=== PATIENT | female | born 1945 | race Native Hawaiian/Other Pacific Islander ===

== ENCOUNTER 2016-05-23 11:45 | Observation (INO) | payer OTHER, BC ==
[~2016-05-23] VITALS: Ht 157.5 cm; Wt 54.4 kg
[2016-05-23] VITALS (11 sets, daily range): BP systolic 104–162; BP diastolic 63–97; TEMP 98; Ht 157.5 cm; Wt 54.4 kg
[~2016-05-23 11:45] MED LIST: ATEN25TA21 PO; CHLO25CA11 PO; COZAAR100 MG PO; FLUTICASON50 MCG/ACT NAS; LORTAB 7.5-3251 TAB PO; ONDA4TAB3 PO; SEROQUEL25 MG PO
[2016-05-23 16:00] LABS: PLATELET COUNT 511 K/uL (152-353)
[2016-05-23 16:21] LABS: POTASSIUM 3.3 mmol/L (3.6-5.2); SODIUM 137 mmol/L (136-145)
--- NOTE | 2016-05-23 19:30 | NUR ---
PM ASSESSEMENT COMPLETED. PT GRABS STETHESCOPE WHEN NURSE ASCULTATING LUNGS AND BOWEL SOUNDS. PT STATES SHE IS NOT IN HOSPITAL. PT CONFUSED, COMBATIVE.
--- NOTE | 2016-05-23 21:57 | NUR ---
PT RESTING PAST ATIVAN. RESP EVEN AND UNLABORED. NURSE REMAINS AT BEDSIDE FOR SAFETY.
[2016-05-24 02:00] VITALS: BP 145/98; TEMP 97.8
[2016-05-24 04:00] VITALS: BP 150/94; TEMP 98
--- NOTE | 2016-05-24 04:27 | NUR ---
PT CLIMBING OVER SIDE OF BED. ATIVAN 1MG IV ORDERED.
--- NOTE | 2016-05-24 04:54 | NUR ---
PT RESTING QUIETLY PAST ATIVAN.
--- NOTE | 2016-05-24 07:00 | NUR ---
PT RESTING WITHEYES CLOSED. COLOR PINK, SKIN W& DRY. MACIEL TO BSD WITH CL YELLOW URINE.
[2016-05-24 07:56] LABS: PLATELET COUNT 445 K/uL (152-353)
[2016-05-24 08:00] VITALS: BP 135/87; TEMP 97.5
[2016-05-24 08:18] LABS: POTASSIUM 2.9 mmol/L (3.6-5.2); SODIUM 137 mmol/L (136-145)
--- NOTE | 2016-05-24 09:45 | NUR ---
PT AWAKE, CONFUSED & TRYING TO GET OO BED.ASSISTED PT TO DRINK OJ & SHIFT IN BED FOR COMFORT. PT CONFUSED TO PLACE & TIME,STATES,'I'VE GOT TO GET READY TO GO TO MY APPOINTMENT'. REALIY ORIENTATION,PT INSISTED ,'I'VE GOT TO LEAVE'. PT CONTINUES TO TRY TO GET OOB. MEDICATED WITH ATIVAN 1MG IVP PER ORDER.
--- NOTE | 2016-05-24 10:10 | NUR ---
PT CONTINUES TO TRY TO GET OOB 'TO GO 'PER PT. ENCOURAGED PT TO ALLOW US TO ASSIST HER TO A CHAIR OR BSC, PT REFUSED, STATES, 'NO, I DON'T WANT TO GET IN A CHAIR' EMELY GOT TO [facility] FOR AN APPOINTMENT,EMELY GOT TO GO TO SCHOOL TO GET MY TEETH DONE','EMELY GOT $25,000.00 IN THESE TEETH & ITS VERY IMPORTANT TO KEEP THAT APPOINTMNET.' ASSISTED PT TO SIT UP HIGHER IN BED & AWAY FROM SIDE OF BED,PT CURSING AT,HITTING AT STAFF. PT THREATENING TO 'ILL BITE YOU,I'LL SLAP YOU!PT DR VASQUEZ NOTIFIED,NEW ORDER,PT MEDICATED WITH GEODON 10 MG IM R ARM.
--- NOTE | 2016-05-24 10:48 | NUR ---
RESTING QUIETLY THIS AM PT TURNED AND REPOSITIONED. WEARING ADULT DIAPERS. NO BM THIS AM. ATE ABOUT 75% BREAKFAST ASSIT WITH FEEDING BY STUDENT NURSES.
--- NOTE | 2016-05-24 11:00 | NUR ---
PT REMAINS RESTLESS, DRANK KOKO RODRIGUEZ WITH ASSISTANCE.
--- NOTE | 2016-05-24 11:29 | NUR ---
PT CALMER AT INTERVALS,CONTINUES TO PULL AT IV'S & WIRES,TRYING TO GET OOB BY THROWING LEGS OVER SIDE RAILS. DR VASQUEZ AT BS,NEW ORDERS,PT MEDICATED WITH GEODON 10 MG IV.
[2016-05-24 12:00] VITALS: BP 125/91; TEMP 97.5
--- NOTE | 2016-05-24 12:35 | NUR ---
REPORT CALLED TO SUDHA ANDERSON RN [facility].
--- NOTE | 2016-05-24 12:55 | NUR ---
PT CALMER,LEGS REMAIN OVER SIDE RAIL,PT RESTING AT INTERVALS WITH EYES CLOSED. BHU STAFF AT BS. PT TRANSFERRED VIA GERICHAIR WITH IV K+ & MAG INFUSING. RAHEEM TO BSD WITH 800 ML IN BAG.PT TRANSFERRED STABLE TO BHU PER BHU STAFF.
--- NOTE | 2016-05-24 13:50 | NUR ---
MESSAGE LEFT WITH TO NOTIFY HIM OF PT'S TRANSFER BACK TO [facility].
== END 2016-05-24 12:55 | disposition other institution (70) ==
LOC: ICU 11:45
PROVIDERS: Emergency Medicine; ADMIT Nurse Practitioner
DX: E83.42 Hypomagnesemia (principal); E78.4 Other hyperlipidemia; I10 Essential (primary) hypertension; E87.6 Hypokalemia; E83.51 Hypocalcemia; D64.89 Other specified anemias
CPT/HCPCS: 36415; 51702; 80053; 81000; 82746; 83615; 83735; 84100; 85027; 85044; 99220; G0378; G0379; J2060; J3475; J3480; J3486